=== PATIENT | male | born 1960 | race Caucasian/White ===

== ENCOUNTER 2019-02-15 15:28 | Outpatient (CLI) | payer OTHER, SELFPAY ==
[2019-02-15 16:54] LABS: ALT 31 U/L (12-78); AST 19 U/L (15-37); Albumin 3.9 g/dL (3.4-5.0); Alkaline Phosphatase 79 U/L (46-116); Anion Gap 8.8 mmol/L (3-11); BUN 14 mg/dL (7-18); Bilirubin, Total 2.2 mg/dL (0.2-1.0); CO2 27.2 mmol/L (21.0-32.0); CREATININE 1.05 mg/dL (0.70-1.30); Calcium 8.8 mg/dL (8.5-10.1); Calculated LDL 95 mg/dL; Chloride 101 mmol/L (98-107); Cholesterol 218 mg/dL (50-200); GGT 35 U/L (15-85); Glucose 83 mg/dL (70-100); HDL Cholesterol 118 mg/dL (40-60); Potassium 4.3 mmol/L (3.5-5.1); Sodium 137 mmol/L (136-145); Total Protein 6.5 g/dL (6.4-8.2); Triglyceride 25 mg/dL (30-150)
== END 2019-02-15 15:48 ==
PROVIDERS: PCP Emergency Medicine; Visit Provider Emergency Medicine
DX: Z00.00 Encounter for general adult medical examination without abnormal findings (principal); Z13.220 Encounter for screening for lipoid disorders; Z13.228 Encounter for screening for other metabolic disorders; Z12.5 Encounter for screening for malignant neoplasm of prostate
CPT/HCPCS: 36415; 80053; 80061; 83721; 84153; 82977

== ENCOUNTER 2020-11-02 19:02 | Outpatient (REF) | payer OTHER, SELFPAY ==
[2020-11-05 11:48] LABS: PSA, Screening 0.9 ng/mL (0.0-4.5)
== END 2020-11-02 19:03 | disposition home or self-care (01) ==
LOC: LBN 19:02
PROVIDERS: PCP Emergency Medicine; Visit Provider Urology
DX: N40.1 Benign prostatic hyperplasia with lower urinary tract symptoms (principal); R35.1 Nocturia
CPT/HCPCS: 84153

== ENCOUNTER 2021-06-18 11:50 | Outpatient (CLI) | payer OTHER, SELFPAY ==
--- NOTE | 2021-06-18 11:15 | DI.RAD_ITS ---
Exam(s) XR CHEST 2V PA LATERAL EXAM: XR CHEST 2V PA LATERAL CLINICAL HISTORY: cough; rash, R21. Not PUI TECHNIQUE: 2D digital imaging was performed of the chest. Two images were obtained. PA and lateral views were obtained. COMPARISON: No exams were available for comparison FINDINGS: MEDIASTINUM: Normal. HEART: Normal. PULMONARY VASCULATURE: Normal. LUNGS: There are calcified granuloma present. There is an ovoid density in the left perihilar region adjacent to the pulmonary vasculature. This area should be further evaluated with a CT scan of the chest. PLEURAL SPACE: No pleural effusion or pneumothorax. BONE:Within normal limits for the patient's age. OTHER FINDINGS:Normal. IMPRESSION: 1. No acute pulmonary findings. 2. Prominent ovoid density in the left perihilar region. While this may represent pulmonary vasculat ure, a CT scan of the chest is recommended for further evaluation. 3. Findings of pulmonary granulomatous disease. DATA REPOSITORY: RADIATION DOSE DELIVERED:
== END 2021-06-18 12:10 ==
PROVIDERS: PCP Emergency Medicine; Visit Provider Emergency Medicine
DX: R05.8 Other specified cough (principal); R21 Rash and other nonspecific skin eruption; R91.8 Other nonspecific abnormal finding of lung field
CPT/HCPCS: 71046

== ENCOUNTER 2021-06-19 03:09 | Outpatient (CLI) | payer OTHER, SELFPAY ==
[2021-06-19 15:03] LABS: Abs Immature Grans 0.02 10^3/uL (0.0-0.06); Absolute Basophil Count 0.03 10^3/uL (0.0-0.2); Absolute Eosinophil Count 0.14 10^3/uL (0.0-0.7); Absolute Lymphocyte Count 1.22 10^3/uL (1.2-3.4); Absolute Monocyte Count 0.55 10^3/uL (0.1-0.8); Absolute Neutrophil Count 3.45 10^3/uL (1.2-6.7); Basophils % 0.6; Eosinophils % 2.6; HCT 42.9 % (40.0-50.0); HGB 14.3 g/dL (13.5-17.5); Immature Grans % 0.4; Lymphocytes % 22.6; MCH 30.2 pg (27.0-33.0); MCHC 33.3 % (32.0-36.0); MCV 90.7 fL (80-95); MPV 9.1 fL (8.0-11.0); Monocytes % 10.2; Neutrophils % 63.6; Nucleated RBC 0 %; Platelet Count 215 10^3/uL (130-400); RBC 4.73 10^6/uL (4.36-5.78); RDW 12.2 % (11.8-14.1); RDW-SD 40.6 fL; WBC 5.41 10^3/uL (4.4-10.8)
[2021-06-19 15:07] LABS: ESR < 1 mm/hr (0-20)
[2021-06-19 16:10] LABS: ALT 28 U/L (16-63); AST 19 U/L (15-37); Albumin 3.7 g/dL (3.4-5.0); Alkaline Phosphatase 66 U/L (46-116); Anion Gap 4.7 mmol/L (3-11); BUN 20 mg/dL (7-18); Bilirubin, Total 1.6 mg/dL (0.2-1.0); C-Reactive Protein 0.09 mg/dL (0.0-0.3); CO2 28.3 mmol/L (21.0-32.0); CREATININE 1.2 mg/dL (0.70-1.30); Chloride 106 mmol/L (98-107); Glucose 92 mg/dL (74-106); Potassium 4.5 mmol/L (3.5-5.1); Sodium 139 mmol/L (136-145); Total Protein 6.3 g/dL (6.4-8.2)
[2021-06-24 11:10] LABS: Total Protein 6.5 g/dL (6.3-8.2)
== END 2021-06-19 03:10 | disposition home or self-care (01) ==
LOC: LBO 03:09
PROVIDERS: PCP Emergency Medicine; Visit Provider Emergency Medicine
DX: R21 Rash and other nonspecific skin eruption (principal); R07.1 Chest pain on breathing
CPT/HCPCS: 36415; 80053; 85652; 84165; 85025; 86140

== ENCOUNTER 2022-04-10 02:34 | Outpatient (CLI) | payer OTHER, SELFPAY ==
[2022-04-14 11:59] LABS: Cacao/Cocoa, IgE <0.35 kU/L
[2022-04-14 16:54] LABS: Chocolate/Cacao IgG 3.2 mcg/mL (<2.0)
== END 2022-04-10 02:35 | disposition home or self-care (01) ==
LOC: LBO 02:34
PROVIDERS: PCP Family Medicine; Visit Provider Family Medicine
DX: Z12.5 Encounter for screening for malignant neoplasm of prostate (principal); L30.9 Dermatitis, unspecified
CPT/HCPCS: 36415; 84153; 86001; 86003

== ENCOUNTER 2023-04-27 16:42 | Outpatient (CLI) | payer OTHER, SELFPAY ==
[2023-04-27 23:17] LABS: PSA, Screening 1.2 ng/mL (<=4.5)
[2023-04-29 12:27] LABS: Clam IgE <0.10 kU/L (<0.70); Crab IgE <0.10 kU/L (<0.70); Lobster IgE <0.10 kU/L (<0.70); Milk, IgE <0.10 kU/L (<0.70); Oat, IgE <0.10 kU/L (<0.70); Oyster IgE <0.10 kU/L (<0.70); Scallop IgE <0.10 kU/L (<0.70); Shrimp IgE <0.10 kU/L (<0.70); Soybean IgE <0.10 kU/L (<0.70)
== END 2023-04-27 16:43 | disposition home or self-care (01) ==
LOC: LBO 16:43
PROVIDERS: PCP Family Medicine; Visit Provider Family Medicine
DX: Z12.5 Encounter for screening for malignant neoplasm of prostate (principal); L30.9 Dermatitis, unspecified
CPT/HCPCS: 36415; 84153; 86003

== ENCOUNTER 2024-03-16 15:18 | Outpatient (CLI) | payer OTHER, SELFPAY ==
--- NOTE | 2024-03-16 15:15 | RT.EKG_ITS ---
APPROVED REPORT Exam: Resting ECG Reason for Exam: BRADYCARDIA WITH FATIGUE Patient Location: O HR:39 bpm ECG Measurements Heart Rate 39 AXIS OH 223 P 55 QRSd 101 QRS 56 QT 488 T 26 QTc 393 Conclusion Sinus bradycardia...rate< 50 Borderline prolonged OH interval...OH >222, V-rate 30- 49 Probable left ventricular hypertrophy...multiple LVH criteria
== END 2024-03-16 15:19 | disposition home or self-care (01) ==
LOC: DI.CM 15:19
PROVIDERS: PCP Family Medicine; Visit Provider Family Medicine
DX: R00.1 Bradycardia, unspecified (principal)
CPT/HCPCS: 93010

== ENCOUNTER 2024-03-22 02:28 | Outpatient (CLI) | payer OTHER, SELFPAY ==
[2024-03-22 15:22] LABS: Abs Immature Grans 0.02 10^3/uL (0.0-0.06); Absolute Basophil Count 0.03 10^3/uL (0.0-0.2); Absolute Lymphocyte Count 1.13 10^3/uL (1.2-3.4); Absolute Monocyte Count 0.48 10^3/uL (0.1-0.8); Absolute Neutrophil Count 3.64 10^3/uL (1.2-6.7); Basophils % 0.6 %; Eosinophils % 1.9 %; HCT 45.1 % (40.0-50.0); HGB 15.2 g/dL (13.5-17.5); Immature Grans % 0.4 %; Lymphocytes % 20.9 %; MCH 30.7 pg (27.0-33.0); MCHC 33.7 % (32.0-36.0); MCV 91 fL (80-95); MPV 9.5 fL (8.0-11.0); Monocytes % 8.9 %; Neutrophils % 67.3 %; Platelet Count 196 10^3/uL (130-400); RBC 4.95 10^6/uL (4.36-5.78); RDW 12.2 % (11.8-14.1); RDW-SD 40.6 fL
[2024-03-22 16:37] LABS: ALT 25 U/L (16-63); AST 19 U/L (15-37); Albumin 3.6 g/dL (3.4-5.0); Alkaline Phosphatase 62 U/L (46-116); Anion Gap 7.4 mmol/L (3-11); BUN 13 mg/dL (7-18); Bilirubin, Total 1.99 mg/dL (0.2-1.0); CO2 27.6 mmol/L (21.0-32.0); CREATININE 1.1 mg/dL (0.70-1.30); Calcium 8.9 mg/dL (8.5-10.1); Chloride 101 mmol/L (98-107); Creatine Kinase 114 U/L (39-308); Glucose 82 mg/dL (74-106); Potassium 3.9 mmol/L (3.5-5.1); Sodium 136 mmol/L (136-145); TSH (W/Ref FT4) 1.21 uIU/mL (0.36-3.74); Total Protein 6.4 g/dL (6.4-8.2)
[2024-03-22 17:20] LABS: Calculated LDL 98 mg/dL (<100); Cholesterol 200 mg/dL (<200); HDL Cholesterol 95 mg/dL (40-60); Triglyceride 35 mg/dL (<150)
[2024-03-22 23:21] LABS: PSA, Screening 1.3 ng/mL (<=4.5)
[2024-03-23 10:11] LABS: Lyme Ab w Rflx to Lyme Confirm Negative (Negative)
[2024-03-23 10:17] LABS: Hepatitis C Ab w Rflx HCV PCR Negative (Negative)
[2024-03-25 00:36] LABS: Anaplasma phagocytophilum Negative (Negative); B. miyamotoi PCR Negative (Negative); Babesia divergens/MO-1 Negative (Negative); Babesia duncani Negative (Negative); Babesia microti Negative (Negative); Ehrlichia chaffeensis Negative (Negative); Ehrlichia ewingii/canis Negative (Negative); Ehrlichia muris eauclairensis Negative (Negative)
== END 2024-03-22 02:29 | disposition home or self-care (01) ==
LOC: LBO 02:28
PROVIDERS: PCP Family Medicine; Visit Provider Family Medicine
DX: Z13.6 Encounter for screening for cardiovascular disorders (principal); R53.83 Other fatigue; E03.9 Hypothyroidism, unspecified; Z11.59 Encounter for screening for other viral diseases; Z12.5 Encounter for screening for malignant neoplasm of prostate; Z00.00 Encounter for general adult medical examination without abnormal findings
CPT/HCPCS: 36415; 80053; 80061; 82550; 84153; 86803; 87798; 84443; 85025; 86618

== ENCOUNTER 2024-04-11 09:17 | Outpatient (CLI) | payer OTHER, SELFPAY ==
[2024-04-11 14:51] LABS: ESR < 1 mm/hr (0-20)
[2024-04-11 15:52] LABS: TSH (W/Ref FT4) 1.67 uIU/mL (0.36-3.74); Uric Acid 6.2 mg/dL (3.5-7.2)
[2024-04-11 15:53] LABS: C-Reactive Protein < 0.50 mg/dL (<or=0.5)
[2024-04-11 16:33] LABS: Vitamin B12 390 pg/mL (193-986); Vitamin D 25 Total 45.8 ng/mL (30-100)
[2024-04-13 15:15] LABS: EBV DNA Detect/Quant, P Undetected IU/mL (Undetected)
[2024-04-16 09:38] LABS: Testosterone, Free 6.99 ng/dL (3.47-13.0); Testosterone, Total 456 ng/dL (240-950)
== END 2024-04-11 09:18 ==
LOC: LBO 04-22 09:17
PROVIDERS: PCP Family Medicine; Visit Provider Family Medicine
DX: U09.9 Post COVID-19 condition, unspecified (principal); R53.83 Other fatigue; E03.9 Hypothyroidism, unspecified
CPT/HCPCS: 36415; 82306; 84402; 84403; 85652; 87799; 82607; 84443; 84550; 86140

== ENCOUNTER 2024-04-11 11:16 | Outpatient (CLI) | payer OTHER, SELFPAY ==
--- NOTE | 2024-04-11 14:39 | DI.RAD_ITS ---
Exam(s) XR CHEST 2V PA LATERAL EXAM: XR CHEST 2V PA LATERAL CLINICAL HISTORY: long covid,fatigue,u09.9,r53.83. TECHNIQUE: 2D digital imaging was performed. COMPARISON: CR XR CHEST 2V PA LATERAL from 06/18/[address] CHEST W from 07/11/2021 FINDINGS: 2 views: Heart size is normal. The mediastinum is not widened. No infiltrates nor pleural effusions. Calcified granuloma in the lateral right lung is unchanged. With respect of the left hilum the previously described finding is unchanged, not increased in size a nd shown on chest CT of 07/11/2021 to be a vascular hilar structure. IMPRESSION: No acute pulmonary findings. DATA REPOSITORY: RADIATION DOSE DELIVERED:
== END 2024-04-11 11:36 ==
PROVIDERS: PCP Family Medicine; Visit Provider Family Medicine
DX: U09.9 Post COVID-19 condition, unspecified (principal); R53.83 Other fatigue
CPT/HCPCS: 71046

== ENCOUNTER 2024-04-22 01:41 | Outpatient (CLI) | payer OTHER, SELFPAY ==
[2024-04-29 15:41] LABS: EBV EA IgG Negative (Negative)
== END 2024-04-22 01:42 | disposition home or self-care (01) ==
PROVIDERS: PCP Family Medicine; Visit Provider Family Medicine
DX: R53.83 Other fatigue (principal); Z12.11 Encounter for screening for malignant neoplasm of colon
CPT/HCPCS: 36415; 86663

== ENCOUNTER 2024-05-18 08:30 | Day surgery (SDC) | payer OTHER, SELFPAY ==
[2024-05-18 08:34] VITALS: BP 114/70; PULSE 44; RESP 16; TEMP 36.5; O2SAT 100
[2024-05-18] MEDS: Normal Saline Flush 10 ML SYR IV (08:50)
--- NOTE | 2024-05-18 09:04 | W.ANESPRE ---
General Info Date of Service Date Performed: 05/18/24 Height: 5 ft 8 in Weight: 66.6 kg Body Mass Index (BMI): 22.3 Surgical Procedure: Operation Date: 05/18/24 09:35 Proposed Procedure Side Surgeon p Colonoscopy/Gastroscopy Anton Kang MD Meds Allergies and Home Medications Allergies Allergy/AdvReac Type Severity Reaction Status Date / Time mirabegron (From Myrbetriq) Allergy Intermediate Skin Rash Verified 05/18/24 08:49 Home Medication ?Medication ?Instructions ?Recorded diclofenac sodium 1 % topical gel 2 gm topical QID 02/15/19 clobetasol 0.05 % topical cream 1 applic topical DAILY PRN 10/17/21 eszopiclone 1 mg tablet 1 mg PO QHS PRN insomnia #20 tabs 12/03/23 bisacodyl 5 mg tablet,delayed 5 mg PO ONCE #4 tabs 04/22/24 release (Dulcolax (bisacodyl)) polyethylene glycol 3350 17 17 g PO ONCE #238 grams 04/22/24 gram/dose oral powder Current Visit Medications: Current Medications Generic Name Dose Route Start Last Admin Trade Name Freq PRN Reason Stop Dose Admin IV Miscellaneous Supplies 1 each 05/18/24 06:00 Iv Access IV 06/16/24 23:59 DIRECTED FRANSISCO Sodium Chloride 0 ml 05/18/24 06:00 05/18/24 08:50 Normal Saline Flush 10 Ml Syr IV 06/16/24 23:59 10 ml PRN PRN Administration Sodium Chloride 0 ml 05/18/24 06:00 Normal Saline 10 Ml Vial IJ 06/16/24 23:59 DIRECTED PRN Sterile Water 0 ml 05/18/24 06:00 Water,Injection,Sterile 10 Ml Vial IJ 06/16/24 23:59 DIRECTED PRN PFSH Active Problems Active Problems: Problem Status Onset Code Long COVID Acute ~03/2024 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 Sinus bradycardia Acute R00.1 Abnormal electrocardiogram Acute 02/2024 R94.31 Fatigue Acute R53.83 Eczema Chronic L30.9 BPH (benign prostatic hyperplasia) Chronic N40.0 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 Raynaud's syndrome Chronic 01/28/16 I73.00 Medical History Medical History Hypercholesterolemia (01/28/16) Insomnia (01/28/16) Surgical History Surgical History S/P cholecystectomy S/P appendectomy History of colonoscopy (~06/2014) Tobacco Smoking/Tobacco Use Status: Never Passive smoking exposure: No Second hand exposure: No Alcohol Alcohol Intake: former Substance Use Substance use: Occasionally Substance use type: marijuana Vital Signs and Lab Results Vital Signs Most Recent Vital Signs in EMR: Most Recent Vital Signs Temp Pulse Resp BP Pulse Ox 36.5 C 44 L 16 114/70 100 05/18/24 08:34 05/18/24 08:34 05/18/24 08:34 05/18/24 08:34 05/18/24 08:34 Lab Results Blood Type / Crossmatch: No Data to Display Complete Blood Count: No Data to Display Complete Metabolic Panel: No Data to Display Liver Function Panel: No Data to Display Coagulation Panel: No Data to Display Cardiac Panel: No Data to Display Arterial Blood Gas: No Data to Display Venous Blood Gas: No Data to Display Pancreas Panel: No Data to Display Thyroid Panel: No Data to Display Infectious Disease: No Data to Display Blood Cultures: No Data to Display Toxicology Panel: No Data to Display Imaging and Studies Imaging and Studies Study information below may be from another EMR and interpreted by another provider. Please see original notes in EMR for more complete details. EKG Summary: 03/16/24 Conclusion Sinus bradycardia...rate< 50 Borderline prolonged MO interval...MO >222, V-rate 30- 49 Probable left ventricular hypertrophy...multiple LVH criteria Echocardiogram Summary: 03/22/24 Indications: Fatigue, abnl EKG, sinus bradycardia Conclusion Normal left ventricular wall thickness and chamber size. Ejection fraction is 60 to 65%. Wall motion is normal Normal right ventricular size and function Both atria are normal in size There is no structural or hemodynamically significant valvular disease Anesthesia Assessment and Plan Anesthesia History Personal History: No History of Anesthesia Complications Family History: No Family History of Anesthesia Complications Exercise Tolerance Exercise Tolerance: Metabolic Equivalents>4 Cardiac & Pulmonary Exam Cardiac Exam: Normal S1/S2 Heart Sounds Pulmonary Exam: Clear Bilateral Breath Sounds Implantable Cardiac Device Does patient have a Pacemaker or an ICD?: No Airway Exam Known Difficult Airway: No Mallampati Class: 1 Mouth Opening: Normal (> 3cm) Thyromental Distance: Greater than 3 cm Neck Range of Motion: Full ROM Neck Circumference: Normal Teeth Condition: Normal Dentition ASA Classification ASA Score: ASA 2 Emergency Case?: No NPO Status NPO Status: NPO Clears >2 hours, Solids >8 hours Anesthesia Plan Resuscitation Status: Full Code Anesthesia Technique: General Anesthesia Airway Planned: Natural Airway Monitors Used: Standard Monitors Preoperative Comments:: Discussed awareness under anesthesia, risks of anesthesia, and plan for today. Patient's questions were answered.
[2024-05-18 09:09] VITALS: BMI 22.3
--- NOTE | 2024-05-18 09:38 | BOWEL_PTH ---
PATIENT: Ortiz Munoz LOC: [facility] U#:[id number] AGE/SX: 63/M ROOM: RE05/18/[address]: Anton Kang : 1960 BED: DIS: 05/18/2024 SPEC #: [id number] RECD: 05/18/24 13:02 STATUS: GRACIA RE #: [id number] CIPRIANO: 05/18/24 09:[address]: Anton Kang DEPT: Surgical Specimen RECD BY: Carey Andrews ENTERED: 05/18/24 13:04 SP TYPE: Bowel OTHR DR: Allegra Mo Tissues: 1 - BIOPSY BOWEL 2 - STOMACH BIOPSY 3 - STOMACH BIOPSY 4 - BIOPSY BOWEL 5 - BIOPSY BOWEL Procedures: GROSS AND MICRO LEVEL 4 Comments: [id number]
--- NOTE | 2024-05-18 10:10 | W.PM.ENDDOP ---
Date of service: 05/18/24 Time of Service: 10:11 Endoscopy Report PROCEDURE DESCRIPTION: PROCEDURES PERFORMED: 1. EGD with biopsies PREOPERATIVE DIAGNOSIS: Chronic diarrhea POSTOPERATIVE DIAGNOSIS: Normal foregut SURGEON: Elysia Kang MD INDICATION FOR PROCEDURE: 63-year-old man is healthy. He has been having chronic diarrhea for quite some time with no established diagnosis yet. I recommended performing EGD with biopsies to rule out H. pylori, peptic ulcer disease and/or celiac disease as possible contributors. FINDINGS: D2/D3 = normal -multiple biopsies were taken (x 4) to rule out celiac disease D1/bulb = normal - no ulcers or inflammation Pylorus = normal Antrum = normal appearance, no ulcers, cold forceps biopsies were taken to rule out H. pylori routinely Body = normal appearance, biopsies taken with cold forceps technique routinely Fundus = normal, no polyps Cardia = normal Hiatus = no hiatal hernia Distal esophagus = no inflammation, no esophagitis, no Mccain's, no stricture. I did not take biopsies because it appeared normal and he has no symptoms to suggest esophagus problems. Mid esophagus = normal Proximal esophagus/hypopharynx/vocal cords = normal SURVEILLANCE-INTERVAL/FOLLOW-UP: Follow-up with PCP. No surveillance needed. Specimens: Yes EBL: Minimal COMPLICATIONS: None Procedure in detail: The patient gave written consent and was in agreement with the indications, the potential risks as well as the benefits of the procedure. The patient was taken to the endoscopy suite and laid on their left side. Anesthesia was given which was tolerated well. We performed a timeout and we are in agreement I started the procedure. A well-lubricated endoscope was gently and carefully advanced down the esophagus, into the stomach the scope was and through the pylorus into the duodenum. The scope was then slowly withdrawn with the above-noted findings/interventions. The patient tolerated the procedure well and was then turned for colonoscopy (see separate procedure note).
[2024-05-18 10:12] VITALS: BP 100/61; PULSE 45; RESP 16; TEMP 36.2; O2SAT 98
--- NOTE | 2024-05-18 10:12 | W.COLOREPORT ---
Date of service: 05/18/24 Time of Service: 10:15 Colonoscopy Report Procedure Description: Procedures performed: 1. Colonoscopy with cold forceps biopsies Preoperative diagnosis: Chronic diarrhea Postoperative diagnosis: Minimal/mild left?sided diverticular disease Surgeon: Elysia Kang MD Indication for procedure: The patient is a 63-year-old man who has been having chronic diarrhea without an obvious or established etiology for quite some time. Findings: Normal terminal ileum. I took biopsies here with cold forceps technique to rule out IBD (not suspected). Grossly normal colon mucosa. There are mild diverticular changes present from the descending colon through the sigmoid. No inflammation anywhere(no diverticulitis and no SCAD). I took random, non-targeted biopsies of the normal?appearing mucosa from the cecum to the rectum to rule out microscopic colitis. No significant hemorrhoid disease. No polyps. Surveillance interval/follow-up: Pending pathology results of the biopsies. Probably repeat a colonoscopy in 10 years. Specimens: yes Estimated blood loss: Minimal Complications: None Quality of prep: Excellent Procedure in detail: The patient gave written consent and was in agreement with the indications, the potential risks as well as the benefits of the procedure. He was turned from upper endoscopy (see separate procedure note), anesthesia was continued and I started the colonoscopy portion of the exam. Digital rectal and visual examination was performed and grossly within normal limits. A well-lubricated flexible colonoscope was then introduced and passed without any notable difficulty all the way to the cecum identified by the ileocecal valve and the appendiceal orifice. The terminal ileum was briefly intubated and looked normal visually. The scope was then slowly withdrawn with the above-noted findings. The patient tolerated the procedure well and was taken to the PACU in hemodynamically stable condition.
--- NOTE | 2024-05-18 10:16 | W.PM.DSUDISC ---
Date of service: 05/18/24 Time of Service: 10:16 Discharge Plan Disposition Patient Disposition: Home Condition: Good Discharge Details Attending Provider: Anton Kang Primary Care Provider: Allegra Mo Home Meds and New Rx's Prescriptions: No Action clobetasol 0.05 % cream 1 applic topical DAILY PRN diclofenac sodium 1 % gel 2 gm TP QID bisacodyl [Dulcolax (bisacodyl)] 5 mg tablet,delayed release (DR/EC) 5 mg PO ONCE Qty: 4 0RF Rx Instructions: Take per colonoscopy instructions provided by ordering providers office polyethylene glycol 3350 17 gram/dose powder 17 g PO ONCE Qty: 238 0RF Rx Instructions: Take per colonoscopy instructions provided by ordering providers office eszopiclone 1 mg tablet 1 mg PO QHS PRN (Reason: insomnia) Qty: 20 0RF Discharge Instructions Additional Instructions: FINDINGS: On upper endoscopy everything looks pretty normal. There is no visible inflammation. Again, microscopic conditions could exist and biopsies were taken as we discussed and agreed. On the colonoscopy, there were no concerning findings. No obvious inflammation anywhere. Biopsies were also taken here and in your small intestine to rule out microscopic conditions. You have some very mild diverticular disease present in your colon. This is extremely common, benign, and I do not consider it to be related to any of your symptoms. A routine colonoscopy should be considered again in 10 years. Activity:: Activity as Tolerated Diet:: As Tolerated
--- NOTE | 2024-05-18 10:35 | W.ANESPOSTOP ---
Postoperative Evaluation Date, Time and Location Date Performed: 05/18/24 Time Performed: 10:34 Patient Location: Day Surgery Unit Vital Signs Most Recent Imported Vital Signs: Most Recent Vital Signs Temp Pulse Resp BP Pulse Ox 36.2 C L 45 L 16 100/61 98 05/18/24 10:12 05/18/24 10:12 05/18/24 10:12 05/18/24 10:12 05/18/24 10:12 Pain Score Most Recent Pain Score: Most Recent Pain Score Pain Level 0 05/18/24 10:12 Assessment Mental Status: Awake (Alert & Oriented to Patient Baseline) Airway and Respiratory Function: Patent airway with normal (patient baseline) respiratory exam Cardiovascular Function: Hemodynamically Stable Hydration Status: Adequately Hydrated Nausea & Vomiting: No Nausea or Vomiting Pain: Pt. Denies Any Pain Peripheral Nerve Block: Patient did not receive a nerve block
[2024-05-18 10:44] VITALS: BP 115/74; PULSE 41; RESP 16; TEMP 36.5; O2SAT 99
== END 2024-05-18 11:08 | disposition home or self-care (01) ==
PROVIDERS: PCP Family Medicine; Visit Provider Student in an Organized Health Care Education/Training Program
PROC: (CPT 45380; principal; 2024-05-18 09:30)
DX: Z12.11 Encounter for screening for malignant neoplasm of colon (principal); R19.7 Diarrhea, unspecified; K57.30 Diverticulosis of large intestine without perforation or abscess without bleeding; K31.89 Other diseases of stomach and duodenum
CPT/HCPCS: 45380; 43239; 00123; 88305; J1596; J2704

== ENCOUNTER 2024-12-31 14:08 | Outpatient (REF) | payer OTHER, SELFPAY ==
[2024-12-31 15:24] LABS: Abs Immature Grans 0.01 10^3/uL (0.0-0.06); HCT 45.0 % (40.0-50.0); HGB 15.0 g/dL (13.5-17.5); Immature Grans % 0.2 %; MCH 30.0 pg (27.0-33.0); MCHC 33.3 % (32.0-36.0); MCV 90 fL (80-95); MPV 10.4 fL (8.0-11.0); Platelet Count 174 10^3/uL (130-400); RBC 5.00 10^6/uL (4.36-5.78); RDW 12.2 % (11.8-14.1); RDW-SD 40.6 fL; WBC 6.25 10^3/uL (4.4-10.8)
[2024-12-31 15:33] LABS: ALT 31 U/L (16-63); AST 21 U/L (15-37); Albumin 3.4 g/dL (3.4-5.0); Alkaline Phosphatase 68 U/L (46-116); Anion Gap 9.2 mmol/L (3-11); BUN 15 mg/dL (7-18); Bilirubin, Total 1.0 mg/dL (0.2-1.0); CO2 28.8 mmol/L (21.0-32.0); Calcium 9.3 mg/dL (8.5-10.1); Chloride 97 mmol/L (98-107); Estimated GFR 74.04 (mL/min/1.73m2); Glucose 100 mg/dL (74-106); Potassium 4.0 mmol/L (3.5-5.1); Sodium 135 mmol/L (136-145); Total Protein 7.1 g/dL (6.4-8.2)
[2025-01-02 09:03] LABS: Lyme Ab w Rflx to Lyme Confirm Negative (Negative)
[2025-01-04 11:22] LABS: B. miyamotoi PCR Negative (Negative); Babesia divergens/MO-1 Negative (Negative); Ehrlichia muris eauclairensis Negative (Negative)
== END 2024-12-31 14:09 | disposition home or self-care (01) ==
LOC: LBN 14:08
PROVIDERS: PCP Family Medicine; Visit Provider Nurse Practitioner Family
DX: L03.90 Cellulitis, unspecified (principal)
CPT/HCPCS: 80053; 87798; 85025; 86618

== ENCOUNTER 2025-04-10 03:27 | Outpatient (CLI) | payer OTHER, SELFPAY ==
[2025-04-10 08:36] LABS: Abs Immature Grans 0.02 10^3/uL (0.0-0.06); HCT 42.8 % (40.0-50.0); HGB 14.6 g/dL (13.5-17.5); Immature Grans % 0.4 %; MCH 29.7 pg (27.0-33.0); MCHC 34.1 % (32.0-36.0); MCV 87 fL (80-95); MPV 9.8 fL (8.0-11.0); Platelet Count 204 10^3/uL (130-400); RBC 4.92 10^6/uL (4.36-5.78); RDW 12.6 % (11.8-14.1); RDW-SD 39.9 fL; WBC 4.84 10^3/uL (4.4-10.8)
[2025-04-10 09:54] LABS: ALT 30 U/L (16-63); AST 22 U/L (15-37); Albumin 3.5 g/dL (3.4-5.0); Alkaline Phosphatase 88 U/L (46-116); Anion Gap 8.1 mmol/L (3-11); BUN 17 mg/dL (7-18); Bilirubin, Total 1.6 mg/dL (0.2-1.0); CO2 26.9 mmol/L (21.0-32.0); Calcium 8.9 mg/dL (8.5-10.1); Chloride 105 mmol/L (98-107); Creatine Kinase 122 U/L (39-308); Estimated GFR 83.01 (mL/min/1.73m2); Glucose 90 mg/dL (74-106); Magnesium 2.2 mg/dL (1.8-2.4); Potassium 3.9 mmol/L (3.5-5.1); Sodium 140 mmol/L (136-145); TSH 2.31 uIU/mL (0.36-3.74); Total Protein 6.7 g/dL (6.4-8.2)
[2025-04-10 18:14] LABS: T3, Total 101 ng/dL (82-158)
[2025-04-10 19:19] LABS: PSA, Screening 1.4 ng/mL (<=4.5)
[2025-04-10 19:21] LABS: LH 3.9 mIU/mL (1.5-9.3)
[2025-04-11 10:29] LABS: HIV-1/2 Ag & Ab Screen Negative (Negative)
[2025-04-11 18:56] LABS: Adrenocorticotropic Hormone, P 16 pg/mL
[2025-04-13 15:00] LABS: T3 (Triiodothyronine) Reverse 17 ng/dL (10-24)
[2025-04-13 15:43] LABS: Dehydroepiandrosterone (DHEA) 2.5 ng/mL (<5.0)
[2025-04-17 23:31] LABS: Testosterone, Free 73.5 pg/mL (35.0-155.0)
== END 2025-04-10 03:28 | disposition home or self-care (01) ==
LOC: LOS 03:29
PROVIDERS: PCP Family Medicine; Visit Provider Family Medicine
DX: G93.39 Other post infection and related fatigue syndromes (principal); Z12.5 Encounter for screening for malignant neoplasm of prostate; T73.3XXA Exhaustion due to excessive exertion, initial encounter; Z11.4 Encounter for screening for human immunodeficiency virus [HIV]; Z00.00 Encounter for general adult medical examination without abnormal findings
CPT/HCPCS: 36415; 80053; 80400; 82533; 82550; 84153; 84402; 84403; 87389; 82024; 82626; 83002; 83735; 84439; 84443; 84480; 84482; 85025

== ENCOUNTER → 2025-05-08 02:28 | Outpatient (CLI) | payer OTHER, SELFPAY ==
--- NOTE | 2025-05-08 07:00 | DI.MRI_ITS ---
Exam(s) MR LUMBAR SPINE WO EXAM: MR LUMBAR SPINE WO CLINICAL HISTORY: radiculopathy x 6 weeks,acute lt sided low back pain,m54.50. TECHNIQUE: Multiplanar multisequence MRI of the Lumbar spine was performed. COMPARISON: CR XR CHEST 2V PA LATERAL from 04/11/2024 FINDINGS: Bones: The last intervertebral disc space is designated the L5/S1 level for the numbering purpose of this examination. The vertebral body heights are well maintained. Alignment: Unremarkable. The marrow signal characteristics are unremarkable. Hemangioma in L2. Cord: The conus tip ends at the T12 level. It is of normal size and signal intensity. T12-L1: The disc height is maintained. No focal disc herniation is present. No central spinal canal stenosis.No neural foraminal stenosis. L1-2: The disc height is maintained. No focal disc herniation is present. No central spinal canal stenosis.No neural foraminal stenosis. L2-3:The disc height is maintained. No focal disc herniation is present. No central spinal canal stenosis.No neural foraminal stenosis. L3-4: The disc height is maintained. There is mild disc bulging and small endplate osteophytes. No focal disc herniation is present. No central spinal canal stenosis.No neural foraminal stenosis. L4-5:The disc height is maintained. Left paracentral disc protrusion effacing the anterior left side of the thecal sac, causing mild no central spinal canal stenosis.Mild facet joint degenerative changes and mild ligamentous hypertrophy.Mild left neural foraminal stenosis. L5-S1: The disc height is maintained. Minimal disc bulging. No focal disc herniation is present. No central spinal canal stenosis.No neural foraminal stenosis. The visualized SI joints and sacrum are unremarkable. Soft tissues: The paraspinal soft tissues are unremarkable. IMPRESSION: Small left paracentral disc protrusion at L4-5. Mild central canal stenosis and mild left neural foraminal narrowing. DATA REPOSITORY:
== END ==
PROVIDERS: PCP Family Medicine; Visit Provider Family Medicine
DX: M51.26 Other intervertebral disc displacement, lumbar region (principal); M99.63 Osseous and subluxation stenosis of intervertebral foramina of lumbar region
CPT/HCPCS: 72148

== ENCOUNTER 2025-06-20 08:33 | Outpatient (CLI) | payer OTHER, SELFPAY ==
--- NOTE | 2025-06-20 06:00 | DI.RAD_ITS ---
Exam(s) XR PAIN CLINIC LUMBAR SP 2V EXAM: XR PAIN CLINIC LUMBAR SP 2V CLINICAL HISTORY: Dx: Lumbar Radiculopathy TECHNIQUE: 2D and realtime digital imaging was performed. Radiologist not present. CONTRAST MATERIAL: None. COMPARISON: No exams were available for comparison FINDINGS: Fluoroscopy was provided for pain management therapy. Please refer to procedure report or details. Radiation Exposure Index: Ka,r=2.27 mGy IMPRESSION: As above. RADIATION DOSE DELIVERED:
[2025-06-20 08:27] VITALS: BP 101/65; PULSE 46; RESP 18; TEMP 36.6; O2SAT 100
--- NOTE | 2025-06-20 08:55 | PDOC.PAIN ---
Date of service: 06/20/25 Time of Service: 09:19 Pain Managment Procedure Note Procedure Note Procedure Note: Lumbar Interlaminar Epidural Steroid Injection ? Location: L4-5 ? Pre-procedure Diagnosis: M54.16- Radiculopathy, LUMBAR region ? Post-procedure Diagnosis:? The same as above ? Sedation:? ? None ? Medication: Depo-Medrol 80 mg, Omnipaque 1 mL ? Estimated blood loss:? less than 2 ml ? Surgeon:? Casey Allan MD COMMENT: L4-5:The disc height is maintained. Left paracentral disc protrusion effacing the anterior left side of the thecal sac, causing mild no central spinal canal stenosis.Mild facet joint degenerative changes and mild ligamentous hypertrophy.Mild left neural foraminal stenosis. ? Procedure Detail:? The procedure and potential risks were explained to the patient and informed written consent was obtained. The patient was escorted to the procedure room and placed in the prone position. Pillows were utilized for proper positioning and comfort. Time out was performed in the procedure room with nursing staff confirming the patient's identity, procedure to be performed, allergies, and any blood thinning or anti-platelet medications.? The patient's low back was prepped with ChloraPrep and draped in a sterile fashion. Sterile technique was maintained throughout the procedure.? Sterile gloves were used, a face mask was worn, and new single dose vials of all medications were used with the top being swabbed with alcohol and given time to dry prior to withdrawal of medication. Lidocane 1% was used to anesthetize the skin.Using a 25-gauge 1.5 inch needle, 1% lidocaine was instilled into the superficial soft tissue overlying the targeted area to provide local anesthesia. With fluoroscopic guidance, a 17 -gauge Tuohy needle was advanced toward the interlaminar space of L4-5. The needle was then advance through the ligamentum flavum and into the posterior epidural space using the loss of resistance technique. Correct needle placement was confirmed through review of the AP and lateral fluoroscopic views. A 19-gauge arrow catheter was threaded cephalad and to the Left Following negative aspiration, 1 ml of Omnipaque 240 contrast was injected which confirmed good flow throughout the epidural space and no evidence of vascular flow or flow into adjacent compartments. Next, following negative aspiration, 1 ml of normal saline and 80mg of Depo-Medrol was injected. The needle was gently removed. The patient tolerated the procedure well and was transported to the recovery area for observation and discharge instructions. Permanent images saved and recorded. PAIN PRE-PROCEDURE 10 POST-PROCEDURE 010 Plan:? Follow up prn. COMMENT: Depending on how he does could consider left transforaminal injection at L4 Coding Conscious Sedation used for procedure: No CPT Codes: Inj Spine L/S w/Imaging - [id number] ([id number] ~G) Additional Codes: Date of Service () Diagnoses: M54.16- Radiculopathy, LUMBAR region
[2025-06-20 09:07] VITALS: PULSE 41; O2SAT 100
[2025-06-20 09:10] VITALS: PULSE 42; O2SAT 100
[2025-06-20] MEDS: Omnipaque 240 MG/ML 50 ML BTL IJ (09:22)
[2025-06-20] MEDS: Epidural Tray 1 EACH MC (09:22)
[2025-06-20] MEDS: methylPREDNISolone ACETATE 40 MG/ML VIAL IJ (09:22)
== END 2025-06-20 08:34 | disposition home or self-care (01) ==
LOC: PC 08:33
PROVIDERS: PCP Family Medicine; Visit Provider Anesthesiology Pain Medicine
DX: M54.16 Radiculopathy, lumbar region (principal)
CPT/HCPCS: 62323; 72100; J1010; Q9967